=== PATIENT | female | born 1950 ===

== ENCOUNTER 2020-05-06 10:13 | Outpatient (CLI) | payer OTHER ==
[~2020-05-06 10:13] MED LIST: PERCOCET 5/3251 TAB PO
== END 2020-05-06 10:16 | disposition home or self-care (01) ==
LOC: SONOGRAMA 10:13
PROVIDERS: ATTEND Pathology Anatomic Pathology & Clinical Pathology
DX: C73 Malignant neoplasm of thyroid gland (principal)